=== PATIENT | male | born 1975 | race Asian ===

== ENCOUNTER 2020-10-08 20:38 | Emergency (ER) | payer OTHER ==
[2020-10-08] MEDS ORDERED: NAPROSYN500 MG PO (21:03)
[2020-10-08] MEDS ORDERED: DOXYCYCLINE HY100 MG PO (21:03)
[2020-10-08 21:19] VITALS: BP 164/92
== END 2020-10-08 21:25 | disposition home or self-care (01) ==
LOC: FSED 21:24
DX: L03.312 Cellulitis of back [any part except buttock and flank] (principal); L72.3 Sebaceous cyst
CPT/HCPCS: 99283